=== PATIENT | male | born 1980 | race Hispanic/Latino ===

== ENCOUNTER → 2018-05-29 | Outpatient (CLI) | payer OTHER, SELFPAY | END | disposition home or self-care (01) | LOC: SLP 20:01 | PROVIDERS: ATTEND Internal Medicine | DX: G47.33 Obstructive sleep apnea (adult) (pediatric) (principal); Z72.89 Other problems related to lifestyle | CPT/HCPCS: 95810 ==

== ENCOUNTER → 2018-06-10 | Outpatient (CLI) | payer OTHER | END | disposition home or self-care (01) | LOC: SLP 20:12 | PROVIDERS: ATTEND Internal Medicine | DX: G47.33 Obstructive sleep apnea (adult) (pediatric) (principal) | CPT/HCPCS: 95811 ==